=== PATIENT | female | born 1995 | race Caucasian/White ===

== ENCOUNTER 2019-11-30 08:44 | Emergency (ER) | payer OTHER, SELFPAY ==
[2019-11-30 08:50] VITALS: BP 141/82; PULSE 93; RESP 18; TEMP 36.6; O2SAT 97
--- NOTE | 2019-11-30 09:03 | ED.URI ---
HPI - URI/Sore Throat General Chief Complaint: Upper Respiratory Infection Stated Complaint: cough sore throat congestion Time Seen by Provider: 11/30/19 09:03 Source: patient and family Mode of arrival: ambulatory Limitations: no limitations History of Present Illness HPI Narrative: Patient presents with a 2-day history of sore throat nasal congestion fever and cough. No trouble swallowing no drooling. Patient states her sister was just diagnosed with strep today. And is worried that she may have strep throat. Patient needs a work note due to calling in sick to work today. MD elicited complaint: fever, cough, sore throat and nasal congestion Related Data Allergies Allergy/AdvReac Type Severity Reaction Status Date / Time No Known Allergies Allergy Verified 11/30/19 09:08 Review of Systems Review of Systems: Narrative: CONSTITUTIONAL: Denies fever, chills, or sweats. EYES: Denies visual changes, redness, or discharge. ENT: Patient reports sore throat nasal congestion no ear pain. CARDIOVASCULAR: Denies chest pain, palpitations, or edema. RESPIRATORY: Denies cough or dyspnea. GASTROINTESTINAL: Denies abdominal pain, nausea, vomiting, or diarrhea. GENITOURINARY: Denies dysuria or hematuria. SKIN: Denies rash or itching. MUSCULOSKELETAL: Denies back pain, joint pain, or myalgia. NEUROLOGIC: Denies headache, numbness, or weakness. PSYCHIATRIC: Denies anxiety or depression. PMFSH Comments At time of signature, agree with nursing past medical, surgical, social and family history. There is no relevant family history pertinent to the presenting complaint Exam Narrative: Exam Narrative: GENERAL: Well-appearing, well-nourished, and in no acute distress. HEAD: Normocephalic, atraumatic. EYES: PERRLA and EOMI. ENT: Nasal congestion, cough nasal drainage sore throat mild pharyngeal erythremia no exudate no trismus able to open mouth fully mild postnasal drainage NECK: Supple. CHEST: Clear to auscultation. No respiratory distress. HEART: Regular rate and rhythm. No murmur heard. Normal peripheral pulses. ABDOMEN: Soft, nontender, nondistended, normal active bowel sounds. EXTREMITIES: Normal range of motion. No edema. SKIN: Warm, dry, no rash. NEURO: No focal deficits. Alert and oriented x3. Ramila Coma Scale Eye Opening: Spontaneous 4 Cosby Coma Scale Motor: Obeys Commands 6 Cosby Coma Scale Verbal: Oriented 5 Cosby Coma Scale Total 15 Course Vital Signs Vital signs: Vital Signs Temperature 36.6 C 11/30/19 08:50 Pulse Rate 93 11/30/19 08:50 Respiratory Rate 18 11/30/19 08:50 Blood Pressure 141/82 H 11/30/19 08:50 Pulse Oximetry 97 11/30/19 08:50 Temperature 36.6 C 11/30/19 08:50 Pulse Rate 93 11/30/19 08:50 Respiratory Rate 18 11/30/19 08:50 Blood Pressure 141/82 H 11/30/19 08:50 Pulse Oximetry 97 11/30/19 08:50 MDM - URI/Sore Throat Differential Diagnosis Differential diagnosis: Likely upper respiratory infection, croup, otitis media, sinusitis, viral infection, bronchitis, influenza and pharyngitis Lab Data Labs: Strep Screen Positive Group A Strep *(Reference Range: Negative)* Critical Care Time Critical Care Time Critical Care Time: No Discharge Plan Discharge Clinical Impression: Post-nasal drip Pharyngitis Qualifiers: Pharyngitis/tonsillitis etiology: streptococcus Qualified Code(s): J02.0 - Streptococcal pharyngitis Patient Disposition: Home, Self-Care Condition: Stable Instructions: Antibiotic Form Additional Instructions: Increase fluids especially juices and water [id number] cough and cold medicine of your choice for your symptoms Salt water gargles, throat lozenges or throat sprays as desired change toothbrush in 3-5 days Antibiotic as directed--finished the medication It may take the antibiotic 2-3 days to control the fever/symptoms -If you have any worsening of symptoms or any other concerns please go t
== END 2019-11-30 09:15 | disposition home or self-care (01) ==
PROVIDERS: Emergency Provider Nurse Practitioner Family
DX: J02.0 Streptococcal pharyngitis (principal); R09.82 Postnasal drip
CPT/HCPCS: 87880; 99203; G0463

== ENCOUNTER 2021-07-30 09:16 | Emergency (ER) | payer OTHER, SELFPAY ==
[2021-07-30 09:36] VITALS: BP 128/60; PULSE 94; RESP 16; TEMP 36.7; O2SAT 98
--- NOTE | 2021-07-30 10:21 | ED.URI ---
HPI - URI/Sore Throat General Chief Complaint: Upper Respiratory Infection Stated Complaint: Sore Throat/ Congestion Source: patient and RN notes reviewed Mode of arrival: ambulatory Limitations: no limitations History of Present Illness HPI Narrative: Yvonne is a 26-year-old female who is ambulatory to the [facility]. Patient complains of cough, nasal congestion, and headache for 1 day. Patient states she did use NyQuil last night without any relief. Patient states she does have allergies and does not take any routine medicines for this. Patient states she is still eating and drinking without difficulty. MD elicited complaint: sore throat and nasal congestion Related Data Home Medications Medication Instructions Recorded Confirmed No Home Medications 07/30/21 07/30/21 Allergies Allergy/AdvReac Type Severity Reaction Status Date / Time No Known Allergies Allergy Verified 07/30/21 10:03 Review of Systems Review of Systems: CONSTITUTIONAL: Denies body aches, fever, chills, or sweats+ headache EYES: Denies visual changes, redness, or discharge. ENT: + sore throat, nasal congestion, CARDIOVASCULAR: Denies chest pain, palpitations, or edema. RESPIRATORY: Denies cough or dyspnea. GASTROINTESTINAL: Denies abdominal pain, nausea, vomiting, or diarrhea. GENITOURINARY: Denies dysuria or hematuria. SKIN: Denies rash, itching, or wounds. MUSCULOSKELETAL: Denies back pain, joint pain, or myalgia. NEUROLOGIC: Denies headache, numbness, tingling, or weakness. PSYCH: Denies depression or anxiety. . PMFSH Comments At time of signature, I have reviewed and agree with nursing past medical, surgical, social and family history unless otherwise noted. Please see nursing chart for further information. There is no relevant family history pertinent to the presenting complaint Exam Narrative: GENERAL: Well-appearing, well-nourished, and in no acute distress. HEAD: Normocephalic, atraumatic. EYES: EOMI. No redness or drainage. Conjunctivae normal. ENT: Mucous membranes pink and moist. Nares with clear drainage. TMs dull with minimal fluid. Throat erythemic without exudate. Uvula midline. NECK: Normal AROM. Supple. No lymphadenopathy. MUSCULOSKELETAL: No bony tenderness. EXTREMITIES: Normal range of motion. No edema. SKIN: Warm, dry, no rash. Capillary refill normal. Normal skin turgor. NEURO: No focal deficits. Alert and oriented x3. Gait steady. PSYCH: Normal affect. No signs of depression or anxiety. Course Vital Signs Vital signs: Vital Signs Temperature 36.7 C 07/30/21 09:36 Pulse Rate 94 07/30/21 09:36 Respiratory Rate 16 07/30/21 09:36 Blood Pressure 128/60 07/30/21 09:36 Pulse Oximetry 98 07/30/21 09:36 Temperature 36.7 C 07/30/21 09:36 Pulse Rate 94 07/30/21 09:36 Respiratory Rate 16 07/30/21 09:36 Blood Pressure 128/60 07/30/21 09:36 Pulse Oximetry 98 07/30/21 09:36 Reviewed. Pt has been instructed to follow up with her PCP regarding her elevated blood pressure today. MDM - URI/Sore Throat MDM Narrative Medical decision making narrative: Rapid strep is negative. Patient is on day 1 of symptoms likely viral in origin Differential Diagnosis Differential diagnosis: Likely upper respiratory infection, sinusitis, viral infection and pharyngitis Medical Records Attestation: I reviewed the patient's medical records. Lab Data Attestation: I reviewed the patient's lab results. Labs: Strep Screen Presumptive Negative *(Reference Range: Negative)* Critical Care Time Critical Care Time Critical Care Time: No Discharge Plan Discharge Clinical Impression: Upper respiratory infection Patient Disposition: Home, Self-Care Condition: Stable Instructions: Antibiotic Form, Viral Syndrome (ED) Additional Instructions: Yvonne symptoms are likely due to a viral illness, which is not treated with antibioti
== END 2021-07-30 10:25 | disposition home or self-care (01) ==
PROVIDERS: Emergency Provider Nurse Practitioner Family
DX: J06.9 Acute upper respiratory infection, unspecified (principal)
CPT/HCPCS: 87081; 87880; 99213; G0463

== ENCOUNTER 2021-09-11 08:58 | Emergency (ER) | payer OTHER, SELFPAY ==
[2021-09-11 09:03] VITALS: BP 128/66; PULSE 80; RESP 16; TEMP 36.8; O2SAT 100
--- NOTE | 2021-09-11 10:02 | ED.URI ---
HPI - URI/Sore Throat General Chief Complaint: Upper Respiratory Infection Stated Complaint: sore throat headache Time Seen by Provider: 09/11/21 09:51 Source: patient and RN notes reviewed Mode of arrival: ambulatory Limitations: no limitations History of Present Illness HPI Narrative: Patient presents today complaining of nausea, headache x3 days with swollen lymph nodes to the right neck since this morning. Denies cough, fever, sore throat, congestion or rhinorrhea. She has been taking naproxen and ibuprofen without relief. Sister currently has strep throat Related Data Home Medications Medication Instructions Recorded Confirmed No Home Medications 07/30/21 07/30/21 Allergies Allergy/AdvReac Type Severity Reaction Status Date / Time No Known Allergies Allergy Verified 07/30/21 10:03 Review of Systems Review of Systems: CONSTITUTIONAL: Denies body aches, fever, chills, or sweats. EYES: Denies visual changes, redness, or discharge. ENT: Denies rhinorrhea, congestion, sore throat, or otalgia. Swollen lymph node CARDIOVASCULAR: Denies chest pain, palpitations, or edema. RESPIRATORY: Denies cough or dyspnea. GASTROINTESTINAL: Denies abdominal pain, vomiting, or diarrhea.+ Cough GENITOURINARY: Denies dysuria or hematuria. SKIN: Denies rash, itching, or wounds. MUSCULOSKELETAL: Denies back pain, joint pain, or myalgia. NEUROLOGIC: Denies numbness, tingling, or weakness.+ Headache PSYCH: Denies depression or anxiety. PMFSH Comments At time of signature, I have reviewed and agree with nursing past medical, surgical, social and family history unless otherwise noted. Please see nursing chart for further information. There is no relevant family history pertinent to the presenting complaint Exam Narrative: GENERAL: Well-appearing, well-nourished, and in no acute distress. HEAD: Normocephalic, atraumatic. EYES: EOMI. No redness or drainage. Conjunctivae normal. ENT: Mucous membranes pink and moist. Nares clear. No rhinorrhea. TMs normal bilaterally. Throat normal. Uvula midline. NECK: Normal AROM. Supple. Right submandibular lymphadenopathy. CHEST: No respiratory distress. Clear to auscultation. HEART: Regular rate and rhythm. No murmur appreciated. EXTREMITIES: Normal range of motion. No edema. SKIN: Warm, dry, no rash. Capillary refill normal. Normal skin turgor. NEURO: No focal deficits. Alert and oriented x3. Gait steady. PSYCH: Normal affect. No signs of depression or anxiety. Course Vital Signs Vital signs: Vital Signs Temperature 98.2 F 09/11/21 09:03 Pulse Rate 80 09/11/21 09:03 Respiratory Rate 16 09/11/21 09:03 Blood Pressure 128/66 09/11/21 09:03 Pulse Oximetry 100 09/11/21 09:03 Temperature 98.2 F 09/11/21 09:03 Pulse Rate 80 09/11/21 09:03 Respiratory Rate 16 09/11/21 09:03 Blood Pressure 128/66 09/11/21 09:03 Pulse Oximetry 100 09/11/21 09:03 Reviewed. Pt has been instructed to follow up with her PCP regarding her elevated blood pressure today. MDM - URI/Sore Throat Differential Diagnosis Differential diagnosis: Likely upper respiratory infection, viral infection, influenza and other (COVID-19, strep throat, viral syndrome) Lab Data Attestation: I reviewed the patient's lab results. Labs: Influenza A Screen Negative Reference Range: Negative Influenza B Screen Negative Reference Range: Negative Strep Screen Presumptive Negative *(Reference Range: Negative)* Critical Care Time Critical Care Time Critical Care Time: No Discharge Plan Discharge Clinical Impression: Viral syndrome Patient Disposition: Home, Self-Care Condition: Stable Instructions: Viral Syndrome (ED) Additional Instructions: Your COVID-19 swab, influenza swab and strep swab are all ne
== END 2021-09-11 10:24 | disposition home or self-care (01) ==
PROVIDERS: Emergency Provider Nurse Practitioner
DX: B34.9 Viral infection, unspecified (principal); Z20.822 Contact with and (suspected) exposure to COVID-19
CPT/HCPCS: 87081; 87426; 87804; 87880; 99213; C9803; G0463

== ENCOUNTER 2023-08-02 13:12 | Emergency (ER) | payer OTHER, SELFPAY ==
[2023-08-02 13:22] VITALS: BP 132/74; PULSE 90; RESP 16; TEMP 36.7; O2SAT 96
--- NOTE | 2023-08-02 14:30 | ED.DENTAL ---
HPI - Dental/Oral General Chief complaint: Dental/Oral Stated complaint: Toothache Source: patient Mode of arrival: ambulatory Limitations: no limitations History of Present Illness HPI Narrative: Patient presents for evaluation of right lower dental pain. Symptom onset a few days ago. She has a fractured tooth in the affected area. She rates her pain 8/10 severity, described as throbbing. She took 800 mg of ibuprofen which initially helped. Medication has since lost efficacy. No fever, chills, nausea, vomiting. Related Data Allergies Allergy/AdvReac Type Severity Reaction Status Date / Time No Known Allergies Allergy Verified 07/30/21 10:03 Review of Systems Review of Systems: CONSTITUTIONAL: Denies fever, chills, or sweats. EYES: Denies visual changes, redness, or discharge. ENT: Reports right lower dental pain. Denies rhinorrhea, congestion, sore throat, or otalgia. CARDIOVASCULAR: Denies chest pain, palpitations, or edema. RESPIRATORY: Denies cough or dyspnea. GASTROINTESTINAL: Denies abdominal pain, nausea, vomiting, or diarrhea. GENITOURINARY: Denies dysuria or hematuria. SKIN: Denies rash or itching. MUSCULOSKELETAL: Denies back pain, joint pain, or myalgia. NEUROLOGIC: Denies headache, numbness, dizziness, or weakness. PSYCHIATRIC: Denies anxiety or depression. [facility], [facility] Past Medical History Medical History (Updated 08/02/23 @ 14:31 by Hira Christopher, [facility], ) Tooth fracture Surgical History Surgical History No pertinent past surgical history Family History Family History Mother Family history non-contributory Social History Social History Substance use: never Gender identity (if verbalized by the patient): Female Sexual Orientation (if Verbalized by the Patient): Straight or Heterosexual Spiritual care concerns: No Exam Narrative: GENERAL: Well-appearing, well-nourished, and in no acute distress. HEAD: Normocephalic, atraumatic. EYES: PERRLA and EOMI. ENT: Nares clear, no rhinorrhea or epistaxis. Mucous membranes moist. Oropharynx without tonsillar hypertrophy exudate or other lesions. Bilateral TMs pearly winkler nonbulging. Tooth number 32 is fractured. There is no visible or palpable abscess. NECK: Supple. No adenopathy or masses. No carotid bruits or JVD CHEST: Clear to auscultation. No respiratory distress. No wheezes rales or rhonchi HEART: Regular rate and rhythm. No murmur heard. Normal peripheral pulses. ABDOMEN: Soft, nontender, nondistended, normal active bowel sounds. EXTREMITIES: Normal range of motion. No edema. SKIN: Warm, dry, no rash. NEURO: No focal deficits. Alert and oriented x3. PSYCH: Normal mood and affect. Course Course Emergency Course: This is a 28-year-old female who presented for evaluation of right lower dental pain. She does have evidence of a dental fracture. Will treat with penicillin and tramadol. Follow-up with dentist. Go to the ER for worsening symptoms. Pt in agreement with plan of care. Level of Care: Express Care Visit Vital Signs Vital signs: Vital Signs Temperature 36.7 C 08/02/23 13:22 Pulse Rate 90 08/02/23 13:22 Respiratory Rate 16 08/02/23 13:22 Blood Pressure 132/74 08/02/23 13:22 Pulse Oximetry 96 08/02/23 13:22 Oxygen Delivery Room Air 08/02/23 13:22 Temperature 36.7 C 08/02/23 13:22 Pulse Rate 90 08/02/23 13:22 Respiratory Rate 16 08/02/23 13:22 Blood Pressure 132/74 08/02/23 13:22 Pulse Oximetry 96 08/02/23 13:22 Oxygen Delivery Room Air 08/02/23 13:22 MDM - Dental/Oral Lab Data Labs: G Bedside Result Negative Reference Range: Negative Discharge Plan Discharge Clinical Impression: Fracture of tooth
== END 2023-08-02 14:34 | disposition home or self-care (01) ==
PROVIDERS: Emergency Provider Nurse Practitioner
DX: S02.5XXA Fracture of tooth (traumatic), initial encounter for closed fracture (principal); X58.XXXA Exposure to other specified factors, initial encounter
CPT/HCPCS: 81025; 99213; G0463

== ENCOUNTER 2025-03-23 08:58 | Emergency (ER) | payer OTHER, SELFPAY ==
--- OUTSIDE RECORDS SUMMARY | 2025-03-23 09:00 | XMS_ITS | Clinical Summary ---
Author Organization [facility] Address [address] [place] [address] Care Team Providers Care Tea Leaf Reader Name Role Phone No, Physician Primary Care Provider [phone] Allergies Active Allergy Reactions Criticality Noted Date Comments Electrolytes, Oral Angioedema High 04/07/2020 Medications naproxen (NAPROSYN) 500 mg tablet Take 1 tablet (500 mg total) by mouth 2 (two) times a day with meals 30 tablet 3 Active Additional Information Patient not taking.Reported on 02/23/2024 ibuprofen (ADVIL,MOTRIN) 800 mg tabletIndicati ons:Dental abscess Take 1 tablet (800 mg total) by mouth 3 (three) times a day P.r.n. pain and swelling. Take with food. Collaborating physician Aly Cutler MD 21 tablet 4 Active Additional Information Patient not taking.Reported on 02/23/2024 chlorhexidine (PERIDEX) 0.12 % solutionIndica tions:Dental abscess Apply 15 mL to the mouth or throat 3 (three) times a day Swish around in mouth for 5 minutes 3 times daily then spit out. Collaborating physician Aly Cutler MD 120 mL 1 4 Active Additional Information Patient not taking.Reported on 02/23/2024 medroxyPROGEST ERone (PROVERA) 10 mg tablet Take 1 tablet (10 mg total) by mouth daily 10 tablet 4 Active Active Problems Problem Noted Date Diagnosed Date Dental abscess 01/23/2024 Encounters Date Type Department Care Team Description 03/20/2025 Telephone [facility] Primary Care at [place] [address] [facility] [address] [place] [phone] No, Physician from Last 3 Months Immunizations Immunization Administration Dates Next Due DTP 08/08/2001, 7,1996,07/02,1996 HPV, Quadrivalent 01/02/2008,11/02/2007 Hep A, Pediatric 07/08/2006 Hep A, Unspecified 11/02/2007 Hep B, Adolescent or Pediatric 1996,1995,1996 HiB 06/05/1997, 7,1996,04/19 IPV 08/08/2001,1996 Influenza, Quadrivalent, Spl it, Preservative Free, Intramuscular 08/04/2017,07/21/2015 Influenza, Split 08/11/2009 Influenza, Unspecified 12/01/2023,11/02/2007 MMR 08/08/2001,04/30/1997 OPV 1996,1996 Tdap 08/04/2017,06/04/2015 Varicella 11/02/2007,08/08/2001 Social History Tobacco Use Types Packs/Day Years Used Date Smoking Tobacco: Every Day Vaping Started: 2008 Smokeless Tobacco: Never Tobacco Cessation:Ready to Q uit: Not Asked; Counseling Given: Not Answered Alcohol Use Standard Drinks/Week Comments No 0 (1 standard drink = 0.6 oz pur e alcohol) Personal Safety Answer Date Recorded Have you ever been in or are you currently in a harmful physical or emotional relationship or is someone making you feel afraid or unsafe? 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 Gender Identity Female 02/07/2024 11:22 AM CDT Sexual Orientation Straight 02/07/2024 11 :22 AM CDT Occupation Industry Job Start Date Job End Date Unemployed Not on file Not on file Not on file Obstetrics History Para Term AB IAB SAB Ectopic Multiple Livin g Live Births 3 3 3 0 3 3 Date Outcome GA Total Labor Labor/2nd/3rd Weight Sex Type Anes PTL Devika A1 A5 Name Clin 2014 Term 41w 0d 2.665 kg (5 lb 14 oz) F Vag-S pont Epidur al N Livin g Complications:None 2016 Term 37w 0d 3.289 kg (7 lb 4 oz) F Vag-S pont Epidur al N Livin g Complications:Pre eclampsia/ Eclampsia 2017 Term 39w 0d 2h 46m 2h 21m/0h 18m/0h 07m 4.272 kg (9 lb 6.7 oz) F Vag-S pont Epidur al N Livin g 9 9 GLEAS ON,GI RLPAI Madisyn Partida MD Complications:None Delivery Location:[facility] Comments Hx of pre-eclampsia with pre vious Hx of Chlamydia w prev Last Filed Vital Signs Vital Sign Reading Time Taken Comments Blood Pressure 122/70 02/23/2024 12:43 PM CDT Pulse 92 01/23/2024 9:38 AM CDT Temperature 36.6 C (97.9 F) 01/23/2024 9:38 AM CDT Respiratory Rate 19 01/23/2024 9:38 AM CDT Oxygen Saturation 99% 01/23/2024 9:38 AM CDT Inhaled Oxygen Concentration - - Weight 111.6 kg (246 lb) 02/23/2024 12:43 PM CDT Height 167.6 cm (5' 6) 02/23/2024 12:43 PM CDT Body Mass Index 39.71 02/23/2024 12:43 PM CDT Plan of Treatment Health Maintenance Due Date Last Done Comments Depression Screening 1995 Hepatitis C Screening 1995 HPV Vaccines (3 - 2-dose series) 05/02/2008 01/02/20 08, 11/02/2007 Regular Well Visit/Exam 18-64 02/16/2014 Pneumococcal vaccine <65 (1 of 2 - PCV) 02/16/2015 Cervical Cancer Screening 02/22/2025 02/23/2024 Influenza Vaccine (Season Ended) 2025 12/01/2023, 08/04/2017, 07/21/2015, Additional history exists DTaP/Tdap/Td Vaccine (8 - Td or Tdap) 08/04/2027 08/04/2017, 06/04/2015, 08/08/2001, Additional history exists Hepatitis B Screening Completed 1996 , 1996, 1996 Varicella Vaccines Completed 11/02/2007, 08/08/2001 Procedures Procedure Name Priority Date/Time Associated Diagnosis Comments PAP WITH REFLEX TO HIGH RISK HPV Routine 02/23/2024 9:50 AM CDT from Last 3 Months or Most Recently Relevant to Health Maintenance Results * Pap with reflex to High Risk HPV and Genotyping (Cytology Component) (02/23/2024 9:50 AM CDT) Pap test 02/23/2024 9:50 AM CDT 02/23/2024 9:50 AM CDT Narrative 02/27/2024 3:04 PM CDT [facility] Department of Pathology [address] [place], [place] [id number] Final Report Note to Patients: This report may contain a detailed description of human tissue sent by a health care provider to the laboratory for pathologic evaluation. The content of this report is essential for diagnosis and may provide important critical findings. This information may be unfamiliar to patients to review without a medical professional present. It is advised that the patient review this report in the presence of a health care provider who can answer questions and explain the details. Patient Name: YVONNE PEDRAZA Address: [address] [place] [address] Gender: F : 1995 (Age: 29) Service: Location: N : [id number] [facility] #: [id number] Patient Type: [facility] SPECIMEN Taken: 02/23/2024 Received: 02/23/2024 Accessioned:: 02/24/2024 Reported: 02/27/2024 Physician(s): Daphney Dorman D.O. Daphney Dorman D.O. Diagnosis: SOURCE OF SPECIMEN Imaged Thinprep Pap Test w/ Reflex HPV - Machine Former Cytologic Material: STATEMENT OF ADEQUACY - Specimen satisfactory for interpretation; endocervical/transformation zone component absent or insufficient GENERAL CATEGORIZATION: - Negative for intraepithelial lesion or malignancy MART Cleary(ASCP) Report Electronically Reviewed and Signed Out By MART Cleary(ASCP) 02/27/2024 15:04:11Specimen(s) Received: A: Imaged Thinprep Pap Test w/ Reflex HPV - Machine Former Cytologic Material Clinical History: The Pap test is a screening test used to aid in the detection of cervical cancer and its precursors. It should not be the sole means by which malignant and premalignant lesions are diagnosed. Both false negative and false positive results may occur. It also has poor sensitivity for the detection of endometrial lesions and should not be used to evaluate suspected endometrial abnormalities. For these reasons it is most important to obtain Pap tests at regular intervals. The performance characteristics of some immunohistochemical stains, fluorescence in-situ hybridization tests and immunophenotyping by flow cytometry cited in this report (if any) were determined by the Surgical Pathology Department at [facility] as part of an ongoing inspector quality assurance program and in compliance with federally mandated regulations drawn from the Clinical Laboratory Improvement Act of 1988 (CLIA '88). Some of these tests rely on the use of analyte specific reagents and are subject to specific labeling requirements by the US Food and Drug Administration. Such diagnostic tests may only be performed in a facility that is certified by the Department of Health and Human Services as a high complexity laboratory under CLIA '88. The FDA has determined that such clearance or approval is not necessary. This test is used for clinical purposes. It should not be regarded as investigational or for research. Nevertheless, federal rules concerning the medical use of analyte specific reagents require that the following disclaimer be attached to the report: This test was developed and its performance characteristics determined by the Surgical Pathology Department [facility]. It has not been cleared or approved by the U. S. Food and Drug Administration. Daphney Dorman DO LAB CYTOLOGY ORDERABLES Final Result from Last 3 Months or Most Recently Relevant to Health Maintenance Insurance [facility] Advance Directives For more information, please contact: [phone] * Full Code (Latest Code Status on File) Date Activated Date Inactivated Comments 06/17/2018 5:31 PM 06/19/2018 2:31 PM * Full Code Date Activated Date Inactivated Comments 06/17/2018 6:04 AM 06/17/2018 5:31 PM Full CPR in case of cardiopulmonary arrest Care Teams Tea Leaf Reader Relationship Specialty Start Date End Date No, Physician PCP - General 03/07/17
--- OUTSIDE RECORDS SUMMARY | 2025-03-23 09:00 | XMS_ITS | Encounter Summary ---
Author Organization [facility] Healthcare Address [address] [place] [address] Care Team Providers Care Coke Crane Operator Name Role Phone No, Physician Primary Care Provider [phone] Encounter Details Date Type Department Care Team (Late st Contact Info) Description 03/06/2024 Orders Only [facility] [address] [place] [address] Scanning, Provider Social History Tobacco Use Types Packs/Day Years Used Date Smoking Tobacco: Every Day Vaping Started: 2008 Smokeless Tobacco: Never Alcohol Use Standard Drinks/Week Comments No 0 [...] on file 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 Gender Identity Female 02/07/2024 11:22 AM CDT Sexual Orientation Straight 02/07/2024 11 :22 AM CDT Occupation Industry Job Start Date Job End Date Unemployed Not on file Not on file Not on file documented as of this encounter Plan of Treatment Not on file documented as of this encounter Procedures Procedure Name Priority Date/Time Associated Diagnosis Comments SCAN - LABS 03/06/2024 documented in this encounter Results * SCAN - LABS (03/06/2024) us Provider Scanning Final Result documented in this encounter Visit Diagnoses Not on filedocumented in this encounter Care Teams Coke Crane Operator Relationship Specialty Start Date End Date No, Physician PCP - General 5/15/17 documented as of this encounter
--- OUTSIDE RECORDS SUMMARY | 2025-03-23 09:00 | XMS_ITS | Referral Summary ---
Author Organization [facility] Address [address] [place] [address] Care Team Providers Care General Claims Agent Name Role Phone No, Physician Primary Care Provider [phone] Encounters Date Type Department Care Team Description 03/20/2025 Telephone [facility] Primary Care at [place] [address] [place] [address] No, Physician from Last 3 Months Allergies Active Allergy Reactions Criticality Noted Date [...] Noted Date Diagnosed Date Dental abscess 01/23/2024 Immunizations Immunization Administration Dates Next Due DTP [...] on file 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 Gender Identity Female 02/07/2024 11:22 AM CDT Sexual Orientation Straight 02/07/2024 11 :22 AM CDT Occupation Industry Job Start Date Job End Date Unemployed Not on file Not on file Not on file Last Filed Vital Signs Vital Sign Reading [...] 02/23/2024 12:43 PM CDT Plan of Treatment Not on file Procedures Procedure Name Priority Date/Time Associated Diagnosis Comments PAP WITH REFLEX TO HIGH RISK HPV Routine 02/23/2024 9:50 AM CDT from Last 3 Months or Most Recently Relevant to Health Maintenance Results * Pap with reflex to High Risk HPV and Genotyping (Cytology Component) (02/23/2024 9:50 AM CDT) Pap test 02/23/2024 9:50 AM CDT 02/23/2024 9:50 AM CDT Narrative 02/27/2024 3:04 PM CDT [facility] Department of Pathology [address] [place] [address] Final Report Note to Patients: This report [...] the details. Patient Name: YVONNE PEDRAZA Address: [address] [place] [address] Gender: F : 1995 (Age: 29) [facility] [id number] Patient Type: [facility] SPECIMEN Taken: 02/23/2024 Received: 02/23/2024 Accessioned:: 02/24/2024 Reported: 02/27/2024 Physician(s): Otilio Morrell D.O. Diagnosis: SOURCE OF SPECIMEN Imaged Thinprep Pap Test w/ Reflex HPV - Pipe Caulker Cytologic Material: STATEMENT OF ADEQUACY - Specimen satisfactory for interpretation; endocervical/transformation zone component absent or insufficient GENERAL CATEGORIZATION: - Negative for intraepithelial lesion or malignancy MART Cleary(ASCP) Report Electronically Reviewed and Signed Out By MART Cleary(ASCP) 02/27/2024 15:04:11Specimen(s) Received: A: Imaged Thinprep Pap Test w/ Reflex HPV - Pipe Caulker Cytologic Material Clinical History: The Pap test [...] determined by the Surgical Pathology Department at [facility] as part of an ongoing quality assurance assessor program and in compliance with federally mandated [...] characteristics determined by the Surgical Pathology Department [facility]. It has not been cleared or approved by the U. S. Food and Drug Administration. us Daphney Dorman DO LAB CYTOLOGY ORDERABLES Final Result from Last 3 Months or Most Recently Relevant to Health Maintenance Insurance [facility] Advance Directives For more information, please contact: [phone] * Full Code (Latest Code Status on File) Date Activated Date Inactivated Comments 06/17/2018 5:31 PM 06/19/2018 2:31 PM * Full Code Date Activated Date Inactivated Comments 06/17/2018 6:04 AM 06/17/2018 5:31 PM Full CPR in case of cardiopulmonary arrest Care Teams General Claims Agent Relationship Specialty Start Date End Date No, Physician PCP - General 03/07/17
[2025-03-23 09:04] VITALS: BP 144/80; PULSE 78; RESP 20; TEMP 36.5; O2SAT 98
--- NOTE | 2025-03-23 09:25 | ED.DENTAL ---
HPI - Dental/Oral General Chief complaint: Dental/Oral Stated complaint: migraine, vomiting, tooth pain Time Seen by Provider: 03/23/25 09:20 Source: patient, RN notes reviewed and old records reviewed Mode of arrival: ambulatory Limitations: no limitations History of Present Illness HPI Narrative: 30 year old female who presents to [facility] care with complaints of dental pain to the right lower most posterior molar which appears to have impaction with possible abscess noted for the past 7 days. Patient has no swelling noted to her face, no trismus noted or any difficulty with swallowing. Patient reports that she has been taking Tylenol and Ibuprofen for dental pain and she has also had migraine from dental pain with some nausea and vomiting. MD Complaint: tooth pain Location: Tooth # (32) Onset (ago): week(s) (1) Duration: constant Severity: moderate Severity scale (1-10): 8 Treatment prior to arrival: oral analgesic (Tylenol and Ibuprofen) Related Data Allergies Allergy/AdvReac Type Severity Reaction Status Date / Time No Known Allergies Allergy Verified 07/30/21 10:03 Review of Systems Review of Systems: CONSTITUTIONAL: Denies fever, chills, or sweats. ENT: Denies rhinorrhea, congestion, sore throat, or otalgia. Reports dental pain #32 tooth CARDIOVASCULAR: Denies chest pain, palpitations, or edema. RESPIRATORY: Denies cough or dyspnea. SKIN: Denies rash or itching. MUSCULOSKELETAL: Denies myalgia. NEUROLOGIC: reports some migraine headaches and associated nausea and vomiting All systems reviewed & are unremarkable except as noted in HPI and below PMFSH Past Medical History Medical History (Updated 03/23/25 @ 17:05 by Amanda Gallegos NP) Pain due to dental caries PCOS (polycystic ovarian syndrome) Tooth fracture Surgical History Surgical History No pertinent past surgical history Family History Family History Mother Family history non-contributory Social History Social History (Updated 08/02/23 @ 14:31 by JOSH De La Garza, ARA) Substance use: never Gender identity (if verbalized by the patient): Female Sexual Orientation (if Verbalized by the Patient): Straight or Heterosexual Spiritual care concerns: No Comments At time of signature, agree with nursing past medical, surgical, social and family history. There is no relevant family history pertinent to the presenting complaint Exam Narrative: GENERAL: Well-appearing, well-nourished, and in no acute distress. HEAD: Normocephalic, atraumatic. EYES: PERRLA and EOMI. ENT: Nares clear, no rhinorrhea or epistaxis. Mucous membranes moist. impacted wisdom tooth right lower #32, possible abscess with acute swelling and redness of gum no trismus or any Jose A angina NECK: Supple. no lymphadenopathy CHEST: Clear to auscultation. No respiratory distress. SAO2 98% on room air HEART: Regular rate and rhythm. No murmur heard. Normal peripheral pulses. SKIN: Warm, dry, no rash. NEURO: No focal deficits. Alert and oriented x3 Course Course Emergency Course: Patient is aware of diagnosis, understands and agrees to treatment plan. Anticipatory guidance given. Patient agrees to follow-up as directed and is aware of reasons to seek care at the emergency department. Portions of this record may have been created with voice recognition software Level of Care: Express Care Visit Vital Signs Vital signs: Vital Signs Temperature 36.5 C 03/23/25 09:04 Pulse Rate 78 03/23/25 09:04 Respiratory Rate 20 03/23/25 09:04 Blood Pressure 144/80 H 03/23/25 09:04 Pulse Oximetry 98 03/23/25 09:04 Oxygen Delivery Room Air 03/23/25 09:04 Temperature 36.5 C 03/23/25 09:04 Pulse Rate 78 03/23/25 09:04 Respiratory Rate 20 03/23/25 09:04 Blood Pressure 144/80 H 03/23/25 09:04 Pulse Oximetry 98 03/23/25 09:04 Oxygen Delivery Room Air 03/23/25 09:04 Reviewed MDM - Dental/Oral MDM Narrative Medical decision making narrative: Patients pain and complaint coupled with physical findings are consistent with dentalgia. There are no focal signs of space occupying lesions that are compromising to the airway; no dysphagia, odynophagia, dysphonia, or dyspnea. No uvular deviation or soft palate edema. Patient is non-toxic appearing. The floor of the mouth is soft with no signs of Jose A's Angina; no induration below mandible, no neck pain.? Patient is without trismus or drooling and able to swallow secretions.? Patient is felt appropriate for discharge home with dental follow up. Differential Diagnosis Differential diagnosis: Likely dental caries, toothache, dental abscess and other (nausea vomiting, migraine) Medical Records Attestation: I reviewed the patient's medical records. Critical Care Time Critical Care Time Critical Care Time: No Discharge Plan Discharge Clinical Impression: Dental abscess, Toothache Patient Disposition: Home Condition: Stable Instructions: Antibiotic Form, Dental Abscess (ED) Additional Instructions: Avoid temperature extremes May apply heat or ice to the face Gentle brushing and flossing Antibiotic as directed Tylenol for lesser pain Use ibuprofen regularly Use the medication as provided for severe pain--caution each tablet contains 325 mg of Tylenol--the maximum dose of Tylenol is 4000 mg in 24 hours. This medication may cause constipation consider starting a laxative at this time Follow-up with the dentist as soon as possible--see the list provided If your symptoms persist, change or worsen significantly before you can contact your personal physician then please, without delay, go to the emergency department for further evaluation. Follow-up with PCP in 7-10 days or sooner if needed Follow up with PCP soon in regards to your blood pressure which is elevated above threshold for referral. Blood pressure above 120/80 may indicate pre-hypertension.144/80 Patient Language: Slovak Prescriptions: New ibuprofen 600 mg tablet 600 mg PO QID MDD 4 PRN (Reason: fever or pain) Qty: 30 0RF penicillin V potassium 500 mg tablet 500 mg PO Q12H 10 Days Qty: 20 0RF ondansetron 4 mg tablet,disintegrating 4 mg PO Q6H PRN (Reason: nausea and vomiting) Qty: 14 0RF Rx Instructions: whatever is covered by insurance Follow-up/Referrals: PHYSICIAN,PROPAGATION WORKER [Primary Care Provider] - Stand Alone Forms: Work/School Release IP Time of Disposition: 09:31 Quality [place] Coma Scale Eyes: Open Verbal: Oriented and Alert Motor: Follows Commands Ramila Coma Total Score: 15
== END 2025-03-23 09:41 | disposition home or self-care (01) ==
PROVIDERS: Emergency Provider Registered Nurse
DX: K04.7 Periapical abscess without sinus (principal); E28.2 Polycystic ovarian syndrome
CPT/HCPCS: 99213; G0463